=== PATIENT | male | born 1955 | race Caucasian/White ===

== ENCOUNTER 2018-01-05 02:55 | Observation (INO) | payer SELFPAY ==
[2018-01-05] MEDS ORDERED: Sodium Chloride 0.9% 1,000 ML IV SCH (03:15)
--- NOTE | 2018-01-05 03:15 | ED PDOC ---
Arrival/HPI - General Chief Complaint: Weakness/Neurological Deficit Time Seen by Provider: 01/05/18 02:56 Historian: Patient - History of Present Illness Narrative History of Present Illness (Text): 01/05/18 02:58 62 year old male, whose past medical history includes diabetes, TIA in the past and taking unknown blood thinner, presents to the emergency department by the police for slurred speech and ataxia. 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 Patient's symptoms have resolved. Patient denies any facial droop, fevers, chills, chest pain, shortness of breath, abdominal pain, nausea, vomiting, diarrhea, back pain, neck pain, urinary symptoms, headache, dizziness, or any other complaint. 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 Past Medical History - Provider Review Nursing Documentation Reviewed: Yes - Infectious Disease Hx of Infectious Diseases: None Family/Social History - Physician Review Nursing Documentation Reviewed: Yes Family/Social History: No Known Family HX Allergies/Home Meds Allergies/Adverse Reactions: Allergies No Known Allergies Allergy (Verified 01/05/18 03:02) Home Medications: Home Meds Medication Instructions Recorded Confirmed MetFORMIN [glucoPHAGE] 1 tab PO DAILY 01/05/18 01/05/18 Review of Systems - Physician Review All systems were reviewed & negative as marked: Yes - Review of Systems Constitutional: absent: Fevers, Other (Chills) Respiratory: absent: SOB Cardiovascular: absent: Chest Pain Gastrointestinal: absent: Diarrhea, Nausea, Vomiting Genitourinary Male: absent: Dysuria, Frequency, Hematuria Musculoskeletal: absent: Back Pain, Neck Pain Neurological: Speech Changes (slurred speech), Other (ataxia). absent: Headache , Dizziness, Facial Droop Physical Exam Vital Signs Reviewed: Yes Vital Signs Pulse Resp BP Pulse Ox 01/05/18 05:15 98 01/05/18 02:55 75 18 153/95 H 97 Appearance: Positive for: Well-Appearing, Non-Toxic, Comfortable Pain Distress: None Mental Status: Positive for: Alert and Oriented X 3 Finger Stick Blood Glucose: 151 - Systems Exam Head: Present: Atraumatic, Normocephalic Pupils: Present: PERRL Extroacular Muscles: Present: EOMI Conjunctiva: Present: Normal Mouth: Present: Moist Mucous Membranes Neck: Present: Normal Range of Motion Respiratory/Chest: Present: Clear to Auscultation, Good Air Exchange. No: Respiratory Distress, Accessory Muscle Use Cardiovascular: Present: Regular Rate and Rhythm, Normal S1, S2. No: Murmurs Abdomen: No: Tenderness, Distention, Peritoneal Signs Back: Present: Normal Inspection Upper Extremity: Present: Normal Inspection. No: Cyanosis, Edema Lower Extremity: Present: Normal Inspection. No: Edema Neurological: Present: GCS=15, CN II-XII Intact, Speech Normal, Motor Func Grossly Intact, Normal Sensory Function Skin: Present: Warm, Dry, Normal Color. No: Rashes Psychiatric: Present: Alert, Oriented x 3, Normal Insight, Normal Concentration Medical Decision Making ED Course and Treatment: 01/05/18 02:55 Impression: 62 year old male presents for slurred speech and ataxia found by police while driving erratic. Symptoms have resolved. Plan: -- Labs -- CT head w/o contrast -- EKG -- Chest X-ray -- IV Fluids -- Stroke Consult -- Reassess and disposition Progress Notes: 01/05/18 02:59 Code Stroke called. 01/05/18 03:[address] Winkler who is aware and agrees with the plan. 01/05/18 03:23 EKG shows NSR at 74 BPM. Normal EKG. Interpreted by me. EXAM: CT Head Without Intravenous Contrast Dictated and Authenticated by: Dayron Suresh MD 01/05/2018 3:19 AM IMPRESSION: No acute intracranial pathology or traumatic injury CXR Impression: As read by me, no acute disease. 01/05/18 04:18 Case discussed with medical staff services manager and Dr. Orozco who is aware and agrees with the plan. Accepts patient into hospitalist service. - Lab Interpretations Lab Results: 01/05/18 03:25 01/05/18 03:25 Lab Results 01/05/18 03:25: Magnesium 1.8 01/05/18 03:25: Alcohol, Quantitative < 10 01/05/18 03:25: Blood Type AB POSITIVE, Antibody Screen Negative, BBK History Checked No verified bt 01/05/18 03:25: Sodium 140, Potassium 3.7, Chloride 102, Carbon Dioxide 27, Anion Gap 15, BUN 13, Creatinine 1.1, Est GFR ( Amer) > 60, Est GFR (Non- Af Amer) > 60, Random Glucose 168 H, Calcium 9.5, Total Bilirubin 0.9, AST 22, ALT 24, Alkaline Phosphatase 71, Troponin I < 0.01, Total Protein 7.6, Albumin 4.4, Globulin 3.2, Albumin/Globulin Ratio 1.4, Triglycerides 104, Cholesterol 144, LDL Cholesterol Direct 73, HDL Cholesterol 34 01/05/18 03:25: PT 11.5, INR 1.01, APTT 30.1 01/05/18 03:25: WBC 4.5, RBC 4.74, Hgb 14.6, Hct 40.8 L, MCV 86.1, MCH 30.8, MCHC 35.8, RDW 13.7, Plt Count 138, MPV 10.4, Gran % 48.9 L, Lymph % (Auto) 36.1 H, [place] % (Auto) 10.1 H, Eos % (Auto) 4.7, Baso % (Auto) 0.2, Gran # 2.18, Lymph # (Auto) 1.6, [place] # (Auto) 0.5, Eos # (Auto) 0.2, Baso # (Auto) 0.01 I have reviewed the lab results: Yes - RAD Interpretation Radiology Orders: 01/05/18 03:02 HEAD W/O (CODE STROKE) [CT] Stat CHEST PORTABLE [RAD] Stat - EKG Interpretation Interpreted by ED Physician: Yes Type: 12 lead EKG - Medication Orders Current Medication Orders: Sodium Chloride (Sodium Chloride 0.9%) 1,000 mls @ 100 mls/hr IV .Q10H SILVER Last Admin: 01/05/18 03:43 Dose: 100 mls/hr eMAR Start Stop Document 01/05/18 03:43 SS (Rec: 01/05/18 03:53 [id number] Intravenous Solution Start Date 01/05/18 Start Time 03:43 Insulin Human Lispro (Humalog Med) 0 units SC ACHS SILVER PRN Reason: Protocol Pantoprazole Sodium (Protonix Ec Tab) 40 mg PO 0600 SILVER Last Admin: 01/05/18 05:38 Dose: 40 mg Tamsulosin HCl (Flomax) 0.4 mg PO DAILY SIL[facility] Discontinued Medications Aspirin (Ecotrin) 325 mg PO STAT STA Stop: 01/05/18 04:13 Last Admin: 01/05/18 04:56 Dose: 325 mg rTPA Inclusion/Exclusion - Refusal of Treatment Patient Refused Treatment: No - Inclusion Criteria for Altepase Patient is 18 years or Older: Yes The Clinical Diagnosis of Ischemic Stroke That is Causing a Potentially Disabling Neurological Deficit: No Time of Onset is Well Established to be Less Than 270 Minute Before Treatment Would Begin: Yes Risk/Benefit Discussed With Patient/Family Member Present: Yes - Exclusion Criteria for Altepase Uncontrolled Hypertension at Time of Treatment (Systolic BP above 185 or Diastolic BP above 110 mmHg): No Active Internal Bleeding: No Known Bleeding Diathesis Including but Not Limited to: Platelets Below 100,000/ mm,PTT Above 40 sec After Heparin Use, Current Use of Oral Anitcoagulant With INR Greater Than 1.7 or PT Greater Than 15 secs: No Evidence of an Intracranial Hemorrhage: No Evidence of Major Acute Infarct With Signs Greater Than 1/3 MCA Territory: No Suspicion of Subarachnoid Hemorrhage on Pretreatment Evaluation Even if CT Head Negative For Hemorrhage: No - Warning to TPA With Conditions Following Conditions Weighed Against Anticipated Benefit: Yes Condition: Stroke Serevity Too Mild, Rapid Improvement NIHSS Stroke Scale 3 - Date/Time Evaluation Performed Date Performed: 01/05/18 Time Performed: 02:55 When Was NIHSS Performed: Baseline - How Severe is the Stroke Level of Consciousness: 0=Alert LOC to Questions: 0=Both comments correct LOC to commands: 0=Obeys both correctly Best Gaze: 0=Normal Visual: 0=No visual loss Facial: 0=Normal Motor Arm - Left: 0=No drift Motor Arm - Right: 0=No drift Motor Leg - Left: 0=No drift Motor Leg - Right: 0=No drift Limb Ataxia: 0=Absent Sensory: 0=Normal Best Language: 0=No aphasia Dysarthia: 0=Normal articulation Extinction & Inattention (Neglect): 0=Normal, no object Score: 0 - Scribe Statement The provider has reviewed the documentation as recorded by the Katrina Daniels Provider Scribe Attestation: All medical record entries made by the Scribgrover were at my direction and personally dictated by me. I have reviewed the chart and agree that the record accurately reflects my personal performance of the history, physical exam, medical decision making, and the department course for this patient. I have also personally directed, reviewed, and agree with the discharge instructions and disposition. Disposition/Present on Arrival - Present on Arrival Any Indicators Present on Arrival: No History of DVT/PE: No History of Uncontrolled Diabetes: No Urinary Catheter: No History of Decub. Ulcer: No History Surgical Site Infection Following: None - Disposition Have Diagnosis and Disposition been Completed?: Yes Diagnosis: Transient ischemic attack Disposition: HOSPITALIZED Disposition Time: 04:20 Condition: FAIR
[2018-01-05 03:41] LABS: BASO # 0.01 K/mm3 (0.0-2.0); BASO % 0.2 % (0.0-3.0); EOS # 0.2 (0.0-0.7); EOS % 4.7 % (1.5-5.0); GRAN # 2.18 (1.4-6.5); GRAN % 48.9 % (50.0-68.0); HEMOGLOBIN 14.6 g/dL (14.0-18.0); LYMPH # 1.6 (1.2-3.4); LYMPH % 36.1 % (22.0-35.0); MEAN CELL VOLUME 86.1 fl (80.0-105.0); MEAN CORPUSCULAR HEMOGLOBIN 30.8 pg (25.0-35.0); MEAN CORPUSCULAR HGB CONC 35.8 g/dl (31.0-37.0); MEAN PLATELET VOLUME 10.4 fl (7.0-11.0); MONO # 0.5 (0.1-0.6); MONO % 10.1 % (1.0-6.0); RBC 4.74 10^6/uL (3.5-6.1); RED CELL DISTRIBUTION WIDTH 13.7 % (11.5-14.5); WHITE BLOOD COUNT 4.5 10^3/ul (4.5-11.0)
[2018-01-05 03:45] LABS: INR 1.01; PARTIAL THROMBOPLASTIN TIME 30.1 Seconds (25.1-36.5); PROTHROMBIN TIME 11.5 SECONDS (9.4-12.5)
[2018-01-05 03:46] LABS: ALB/GLOB RATIO 1.4 (1.1-1.8); ALBUMIN 4.4 g/dL (3.0-4.8); ALT/SGPT 24 U/L (7-56); AST/SGOT 22 U/L (17-59); BLOOD UREA NITROGEN 13 mg/dL (7-21); CALCIUM 9.5 mg/dL (8.4-10.5); GFR AFRICAN-AMERICAN > 60; GFR NON-AFRICAN AMERICAN > 60; HDL CHOLESTEROL 34 mg/dL (29-60)
[2018-01-05 03:56] LABS: LDL CHOLESTEROL 73 mg/dL (0-129)
[2018-01-05 03:59] LABS: TROPONIN I < 0.01 ng/mL
[2018-01-05] MEDS ORDERED: Aspirin 325 mg EC Tablets PO STA (04:12)
--- NOTE | 2018-01-05 05:01 | CP.PCM.HP ---
<Alejo La - Last Filed: 01/05/18 05:56> History of Present Illness - History of Present Illness History of Present Illness: Alejo La, PGY-1 History and Physical for Hospitalist Service CC: Ataxia and slurred speech HPI: Mr. 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 Police pulled patient over and he was found to have slurred speech and ataxia per the ED report, which prompted them to call an ambulance to have him evaluated. 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 Patient believes he was pulled over because his lights were off and he forgot his license at home. Patient responds appropriately to questions without slurring of words. Patient is a poor historian and does not remember which medications he takes aside from metformin , Tamsulosin and an unknown BP medication, although he reports compliance. Patient denies use of Aspirin at home because of unknown gastric problems. Patient reports dizziness but denies fevers chills, weakness, headaches, vision changes, chest pain, palpitations, shortness of breath, cough, abdominal pain, pain when urinating or with bowel movements, bleeding, nausea, vomiting, diarrhea, constipation, recent travel. PMHx: HTN, past CVA, DM2, BPH PSHx: none All: NKDA Social: Denies tobacco, ETOH, substance abuse. 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 Need to call [facility] in [place] in AM to confirm meds and dosages PMD: Dr. Nguyen ([facility]) Present on Admission - Present on Admission Any Indicators Present on Admission: No Review of Systems - Review of Systems Review of Systems: 12 point ROS completed and negative except as described in HPI. Past Patient History - Infectious Disease Hx of Infectious Diseases: None - Past Social History Smoking Status: Never Smoked - CARDIAC Hx Cardiac Disorders: Yes Hx Hypertension: Yes - PULMONARY Hx Respiratory Disorders: No - NEUROLOGICAL Hx Neurological Disorder: Yes HX Cerebrovascular Accident: Yes (2013) - HEENT Hx HEENT Problems: No - RENAL Hx Chronic Kidney Disease: No - ENDOCRINE/METABOLIC Hx Endocrine Disorders: Yes Hx Diabetes Mellitus Type 2: Yes - HEMATOLOGICAL/ONCOLOGICAL Hx Blood Disorders: No - INTEGUMENTARY Hx Dermatological Problems: No - MUSCULOSKELETAL/RHEUMATOLOGICAL Hx Musculoskeletal Disorders: No - GASTROINTESTINAL Hx Gastrointestinal Disorders: No - GENITOURINARY/GYNECOLOGICAL Hx Genitourinary Disorders: No - PSYCHIATRIC Hx Psychophysiologic Disorder: No Hx Substance Use: No - SURGICAL HISTORY Hx Surgeries: No Meds Allergies/Adverse Reactions: Allergies Allergy/AdvReac Type Severity Reaction Status Date / Time No Known Allergies Allergy Verified 01/05/18 03:02 Physical Exam - Constitutional Appears: Well, Non-toxic, No Acute Distress - Head Exam Head Exam: ATRAUMATIC, NORMAL INSPECTION, NORMOCEPHALIC - Eye Exam Eye Exam: EOMI, Normal appearance Pupil Exam: PERRL - ENT Exam ENT Exam: Mucous Membranes Moist - Neck Exam Neck exam: Positive for: Normal Inspection. Negative for: Tenderness - Respiratory Exam Respiratory Exam: Clear to Auscultation Bilateral, NORMAL BREATHING PATTERN. absent: Rales, Rhonchi, Wheezes, Respiratory Distress, Stridor - Cardiovascular Exam Cardiovascular Exam: RRR, +S1, +S2 - GI/Abdominal Exam GI & Abdominal Exam: Normal Bowel Sounds, Soft. absent: Distended, Guarding, Organomegaly, Rebound, Tenderness - Extremities Exam Extremities exam: Positive for: full ROM, pedal pulses present. Negative for: calf tenderness, pedal edema - Back Exam Back exam: NORMAL INSPECTION. absent: CVA tenderness (L), CVA tenderness (R), paraspinal tenderness - Neurological Exam Neurological exam: Alert, Oriented x3 Additional comments: no residual L sided weakness appreciated no facial asymmetry, no slurring of words - Expanded Neurological Exam Expanded Neurological exam: Ataxia (none.), Expressive Aphasia (none.) Patient oriented to: person, place, time Cranial nerves: EOM's Intact: Normal, Nystagmus: Normal, Tongue Deviation: Normal Cerebellar Function: Finger to Nose: Normal (normal with both hands), Heel to Jack: Normal Upper motor neuron: Pronator Drift: Normal Sensory exam: Lower Extremity 2 Point Discrimination: Normal, Lower Extremity Light Touch: Normal Neuro motor strength exam: Left Upper Extremity: 4, Right Upper Extremity: 4, Left Lower Extremity: 4, Right Lower Extremity: 4 Coma Scale Eye Opening: SPONTANEOUS Coma Scale Motor Response: OBEYS COMMANDS Coma Scale Verbal: Oriented Coma Scale Total: 15 - Psychiatric Exam Psychiatric exam: Normal Affect, Normal Mood - Skin Skin Exam: Dry, Intact, Normal Color, Warm Results - Vital Signs Recent Vital Signs: Last Vital Signs Temp Pulse 75 01/05/18 02:55 Resp 18 01/05/18 02:55 BP 153/95 H 01/05/18 02:55 Pulse Ox 97 01/05/18 02:55 - Labs Result Diagrams: 01/05/18 03:25 01/05/18 03:25 Assessment & Plan - Assessment and Plan (Free Text) Assessment: Assessment: Mr. Key is a 62 year old Male with a PMHx of CVA in 2003 with reported but undetected residual L sided weakness, DM2, HTN, and BPH who is being evaluated for earlier episode of ataxia and slurring of speech. At present time, symptoms have resolved. Plan: TIA Code stroke called in ED pt received ASA [address] head - No acute pathology or injury EKG NSR @ 74 bpm Trop neg x1. Trend next two f/u CXR Neurology consulted (Dr. Winkler) neuro check and VS q4 x 24 hours Patient has no slurred speech, no ataxia, no facial asymmetry, equal strength bilaterally, and no focal deficits f/u TSH and AM labs DM ISS mod accuchecks 168 on admission f/u a1c and lipid panel HHD HTN unknown med call pharmacy to confirm Hypertensive upon admission 153/95 so NS discontinued Continue to Monitor BPH Tamsulosin 0.4 GI/DVT PPx Protonix 40 SCD's Disposition: admission to tele. Call [facility] in [place] to confirm meds [phone] Patient seen, case discussed, and plan reviewed with Dr. Orozco. Alejo La, PGY-1 <Kaya Orozco - Last Filed: 01/05/18 06:13> Results - Vital Signs Recent Vital Signs: Last Vital Signs Temp Pulse 75 01/05/18 02:55 Resp 20 01/05/18 05:55 BP 153/95 H 01/05/18 02:55 Pulse Ox 98 01/05/18 05:15 - Labs Result Diagrams: 01/05/18 03:25 01/05/18 03:25 Attending/Attestation - Attestation I have personally seen and examined this patient.: Yes I have fully participated in the care of the patient.: Yes I have reviewed all pertinent clinical information: Yes Notes (Text): 01/05/18 06:10 Patient seen with resident by bedside. Case discussed in detail. Agree with examination findings and plan of treatment documented.
[2018-01-05] MEDS: Pantoprazole 40 mg EC Tab PO SCH (05:38)
--- NOTE | 2018-01-05 08:45 | CT ---
Date of service: 01/05/2018 PROCEDURE: CT HEAD WITHOUT CONTRAST. HISTORY: Code Stroke COMPARISON: None available. TECHNIQUE: Axial computed tomography images were obtained through the head/brain without intravenous contrast. Radiation dose: Total exam DLP = 944 mGy-cm. This CT exam was performed using one or more of the following dose reduction techniques: Automated exposure control, adjustment of the mA and/or kV according to patient size, and/or use of iterative reconstruction technique. FINDINGS: HEMORRHAGE: No intracranial hemorrhage. BRAIN: No mass effect or edema. No atrophy or chronic microvascular ischemic changes. VENTRICLES: Unremarkable. No hydrocephalus. CALVARIUM: Unremarkable. PARANASAL SINUSES: Unremarkable as visualized. No significant inflammatory changes. MASTOID AIR CELLS: Unremarkable as visualized. No inflammatory changes. OTHER FINDINGS: The report concurs with the preliminary [facility] report IMPRESSION: No acute findings
[2018-01-05] MEDS: Insulin Lispro (humaLOG) MEDIUM Coverage SC SCH ×4 (09:18→22:03)
--- NOTE | 2018-01-05 09:56 | CARD ---
APPROVED REPORT Date of service: 01/05/2018 EKG Measurement Heart [id number] <Conclusion> Normal sinus rhythm Normal ECG
--- NOTE | 2018-01-05 10:34 | CP.PCM.CON ---
History of Present Illness - History of Present Illness History of Present Illness: Brenden Giordano PGY2 Neurology Consult Note for Dr. Winkler Mr. Key this 62-year-old male with a PMH of CVA in 2003 with slight residual left-sided weakness, DM 2, HTN and BPH who was brought in by ambulance for possible CVA. Per ED triage note, the patient was pulled over by police for driving erratically and slurred speech. 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 When asked for his license and registration, the patient states that he did not have his license because he had forgotten his license in his wallet in another pair of pants at home. The patient states that the police required him to do some physical tasks, including what sounds like standardized field sobriety test (walking in a straight line and turning) which the patient was unable to perform. Upon arrival in the ED, the symptoms had resolved and were not noted in the ED note. CODE STROKE was called, the patient was was given aspirin 325 mg but was not candidate for tPA. EKG was NSR. CT head was unremarkable. NIHSS score was 0 at time of presentation. When evaluated today, the patient denies any focal weakness, dizziness, headaches, slurring of speech, facial asymmetry, weakness, shortness of breath, chest pain, abdominal pain or any numbness or tingling. He is alert and oriented, and able to recall the events in full detail. He states that he was not exhausted at the time, and that work has been slow. He states that sometimes his BP gets high, and he might experience some tingling in his left upper and lower extremities, but denied any current symptoms. 12 point ROS was reviewed and is otherwise unremarkable. PMD: Dr. Nguyen ([facility]) PMH: HTN, past CVA, DM2, BPH PSH: none Meds: reviewed, as per MAR Allergies: NKDA SHxl: Denies tobacco, ETOH, substance abuse. 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 FHx: non-contributory Review of Systems - Review of Systems All systems: reviewed and no additional remarkable complaints except (as per HPI ) Past Patient History - Infectious Disease Hx of Infectious Diseases: None - Past Medical History & Family History Past Medical History?: Yes Past Family History: Reviewed and not pertinent - Past Social History Smoking Status: Never Smoked Alcohol: None Drugs: Denies Home Situation {Lives}: With Family - CARDIAC Hx Cardiac Disorders: Yes Hx Hypertension: Yes - PULMONARY Hx Respiratory Disorders: No - NEUROLOGICAL Hx Neurological Disorder: Yes HX Cerebrovascular Accident: Yes (2003) - HEENT Hx HEENT Problems: No - RENAL Hx Chronic Kidney Disease: No - ENDOCRINE/METABOLIC Hx Endocrine Disorders: Yes Hx Diabetes Mellitus Type 2: Yes - HEMATOLOGICAL/ONCOLOGICAL Hx Blood Disorders: No - INTEGUMENTARY Hx Dermatological Problems: No - MUSCULOSKELETAL/RHEUMATOLOGICAL Hx Musculoskeletal Disorders: No - GASTROINTESTINAL Hx Gastrointestinal Disorders: No - GENITOURINARY/GYNECOLOGICAL Hx Genitourinary Disorders: No - PSYCHIATRIC Hx Psychophysiologic Disorder: No Hx Substance Use: No - SURGICAL HISTORY Hx Surgeries: No Meds Allergies/Adverse Reactions: Allergies Allergy/AdvReac Type Severity Reaction Status Date / Time No Known Allergies Allergy Verified 01/05/18 03:02 - Medications Medications: Current Medications Insulin Human Lispro (Humalog Med) 0 units SC ACHS [facility] PRN Reason: Protocol Last Admin: 01/05/18 09:18 Dose: 1 units Pantoprazole Sodium (Protonix Ec Tab) 40 mg PO 0600 [facility] Last Admin: 01/05/18 05:38 Dose: 40 mg Tamsulosin HCl (Flomax) 0.4 mg PO DAILY [facility] Last Admin: 01/05/18 09:18 Dose: 0.4 mg Physical Exam - Constitutional Appears: Well, Non-toxic, No Acute Distress - Head Exam Head Exam: ATRAUMATIC, NORMAL INSPECTION - Eye Exam Eye Exam: EOMI, Normal appearance, PERRL - ENT Exam ENT Exam: Mucous Membranes Moist, Normal Exam - Neck Exam Neck exam: Positive for: Normal Inspection - Respiratory Exam Respiratory Exam: NORMAL BREATHING PATTERN. absent: Respiratory Distress - Cardiovascular Exam Cardiovascular Exam: RRR, +S1, +S2 - GI/Abdominal Exam GI & Abdominal Exam: Normal Bowel Sounds, Soft - Extremities Exam Extremities exam: Positive for: normal inspection - Back Exam Back exam: NORMAL INSPECTION - Neurological Exam Neurological exam: Alert, CN II-XII Intact, Oriented x3 Additional comments: no motor sensory deficits no facial motor or sensory assymetry no pronator drift noted in upper or lower extremities muscle strength 5/5 x4 extremities no slurring of speech noted - Psychiatric Exam Psychiatric exam: Normal Mood - Skin Skin Exam: Normal Color, Warm Results - Vital Signs Recent Vital Signs: Last Vital Signs Temp 98.1 F 01/05/18 06:00 Pulse 80 01/05/18 06:00 Resp 20 01/05/18 06:00 BP 152/108 H 01/05/18 06:30 Pulse Ox 96 01/05/18 06:00 - Labs Result Diagrams: 01/05/18 03:25 01/05/18 03:25 Labs: Laboratory Results - last 24 hr 01/05/18 01/05/18 01/05/18 04:18 06:14 07:45 POC Glucose (mg/dL) 166 H Troponin I < 0.01 Blood Type Confirm AB POSITIVE Assessment & Plan - Assessment and Plan (Free Text) Assessment: 2-year-old male with a 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 Symptoms resolved upon presentation ED. CODE STROKE was called. Plan: HTN urgency vs r/o TIA - CT head was unremarkable - Lipid panel, TSH unremarkable - A1c is ordered - Drug screen is ordered - Continue aspirin 81 mg daily - MRI brain ordered - CTA Head/Neck ordered - EEG ordered - Echo ordered - PT/OT - Speech pathologist eval is pending - Neurochecks - Moderate fall risk - DVT and GI ppx - Strict glycemic control - Monitor vital signs - Telemetry monitoring - Permissive HTN, treat only SBP > 220, and DBP > 120. If MRI is negative for acute ischemic changes, then maintain normotension - Further recs per Dr. Winkler Case was reviewed and discussed with attending, Dr. Peterson Giordano PGY2
--- NOTE | 2018-01-05 12:26 | RAD ---
Date of service: 01/05/2018 HISTORY: Code Stroke COMPARISON: No prior. FINDINGS: LUNGS: No active pulmonary disease. PLEURA: No significant pleural effusion identified, no pneumothorax apparent. CARDIOVASCULAR: No radiographic findings to suggest acute or significant cardiovascular disease. OSSEOUS STRUCTURES: No significant abnormalities. VISUALIZED UPPER ABDOMEN: Normal. OTHER FINDINGS: None. IMPRESSION: No active disease.
[2018-01-05 14:34] LABS: BARBITURATES, UR NEGATIVE (NEGATIVE); BENZODIAZEPINES, UR NEGATIVE (NEGATIVE); OPIATES, UR NEGATIVE (NEGATIVE); PHENCYCLIDINE, UR NEGATIVE (NEGATIVE)
[2018-01-05] MEDS ORDERED: Iohexol 350 MG/100 ML VIAL ONE (15:20)
--- NOTE | 2018-01-05 17:28 | MRI ---
Date of service: 01/05/2018 PROCEDURE: MRI BRAIN WITHOUT CONTRAST HISTORY: code stroke COMPARISON: Noncontrast head CT from 01/05/2018. TECHNIQUE: Multiplanar, multisequence MR images of the brain were obtained without intravenous contrast enhancement. FINDINGS: HEMORRHAGE: None DWI: No evidence of an acute or early subacute infarction. BRAIN PARENCHYMA: Old infarction in the right centrum semiovale, dominguez radiata and frontal subcortical white matter. There are mild chronic microangiopathic changes. There is no mass, mass effect or abnormal extra-axial fluid collection. The midline sagittal structures are normal. VENTRICLES: There is mild age-related global parenchymal volume loss and proportionate enlargement of the ventricles and cortical sulci. CRANIUM: There is normal bone marrow signal pattern. ORBITS: Grossly unremarkable. PARANASAL SINUSES/MASTOIDS: There is mild mucosal thickening in the paranasal sinuses and a retention cyst/ polyp in the right maxillary sinus. The mastoid air cells are clear. VASCULAR SYSTEM: There are normal signal voids in the larger intracranial arteries. OTHER FINDINGS: None. IMPRESSION: No acute intracranial abnormality. Old infarction in the right centrum semiovale, dominguez radiata and frontal subcortical white matter. Mild chronic microangiopathic changes and mild age-related global parenchymal volume loss.
--- NOTE | 2018-01-05 17:46 | CT ---
PROCEDURE: CTA HEAD AND NECK WITH CONTRAST HISTORY: code stroke COMPARISON: None available. TECHNIQUE: Initial noncontrast head CT was performed. Subsequently, CT angiogram of the head and neck were performed after the intravenous administration of 80 mL of Omnipaque 350. Contiguous 1.5mm thick images were obtained in the axial plane of the neck. 2-D coronal and sagittal MPR images were obtained. Imaging postprocessing was performed with 3-D images also obtained. A delayed contrast head CT was also obtained. This CT exam was performed using one or more of the following dose reduction techniques: Automated exposure control, adjustment of the mA and/or kV according to patient size, and/or use of iterative reconstruction technique. Contrast dose: 100 cc Omnipaque 350 Radiation dose: Total exam DLP = 675.03 mGy-cm. FINDINGS: HEAD: Right: The intracranial internal carotid artery, and anterior and middle cerebral arteries are widely patent. Left: The intracranial internal carotid artery, and anterior and middle cerebral arteries are widely patent. Posterior circulation: The visualized intracranial vertebral arteries, basilar artery and posterior cerebral arteries are widely patent. There is no endoluminal filling defect to suggest thrombus. There is no intracranial saccular aneurysm. There is no abnormal enhancement on the postcontrast CT. NECK: There is a three vessel aortic arch with common origin of the innominate and left common carotid arteries and aortic origin of the left vertebral artery posterior to the origin of the left subclavian artery. There is no stenosis at the origins of the great vessels at the level of the aortic arch. Right Carotid: On the right, the common carotid, internal carotid and external carotid arteries are widely patent. Mild soft plaques at the origin of the left internal carotid artery. There is no hemodynamically significant stenosis in the internal carotid artery by NASCET criteria. Left Carotid: On the left, the common carotid, internal carotid and external carotid arteries are widely patent.There is no hemodynamically significant stenosis in the internal carotid arteries. There is no hemodynamically significant stenosis in the internal carotid artery by NASCET criteria. The vertebral arteries are widely patent. The right vertebral artery is dominant, an anatomic variant. The visualized soft tissues of the neck are normal. The visualized brain and cervical spine are within normal limits. The lung apices are clear. IMPRESSION: 1. No evidence of endoluminal thrombus,occlusion or definite significant stenosis in the intracranial arteries. 2. No evidence of hemodynamically significant stenosis in the internal carotid arteries. 3. Patent bilateral vertebral arteries.
--- NOTE | 2018-01-05 18:47 | CARD ---
APPROVED REPORT Date of service: 01/05/2018 EXAM: Two-dimensional and M-mode echocardiogram with Doppler and color Doppler. INDICATION CVA/TIA 2D DIMENSIONS Left Atrium (2D)4.1 (1.6-4.0cm)IVSd1.3 (0.7-1.1cm) LVDd4.6 (3.9-5.9cm)PWd1.3 (0.7-1.1cm) LVDs3.6 (2.5-4.0cm)FS (%) 21.9 % LVEF (%)44.4 (>50%) M-Mode DIMENSIONS Aortic Root3.70 (2.2-3.7cm)Aortic Cusp Exc.2.40 (1.5-2.0cm) Aortic Valve AoV Peak Gemsgiav550.0cm/Livan Peak GR.5mmHg Mitral Valve MV E Iyigpudy60.7cm/sMV A Yqbthbfn69.9cm/sE/A ratio0.7 TDI Lateral E' Peak V4.87cm/sMedial E' Peak V4.39cm/sE/Lateral E'12.9 E/Medial E'14.3 Pulmonary Valve PV Peak Yhadhelr40.7cm/sPV Peak Grad.1mmHg Tricuspid Valve TR Peak Vxymbxfl050wu/sRAP [id number] Peak Gr.14mmHg [id number] LEFT VENTRICLE The left ventricle is normal size. There is mild to moderate concentric left ventricular hypertrophy. The systolic function is mildly impaired.EF-45% There is mild hypokinesis in the apical anterior wall. The left ventricular diastolic function is normal. No left ventricle thrombus noted on this study. There is no ventricular septal defect visualized. There is no left ventricular aneurysm. There is no mass noted in the left ventricle. RIGHT VENTRICLE The right ventricle is normal size. There is normal right ventricular wall thickness. The right ventricular systolic function is normal. ATRIA The left atrium is borderline dilated. The right atrium size is normal. The interatrial septum is intact with no evidence for an atrial septal defect. AORTIC VALVE The aortic valve is thickened but opens well. No aortic regurgitation is present. There is no aortic valvular stenosis. There is no aortic valvular vegetation. MITRAL VALVE The mitral valve is thickened but opens well. Mitral regurgitation is trace. There is no mitral valve stenosis. There is no evidence of mitral valve prolapse. TRICUSPID VALVE The tricuspid valve leaflets are thickened , but open well. There is trace tricuspid regurgitation.RVSp-24 mmof hg. There is no tricuspid valve stenosis. There is no tricuspid valve prolapse or vegetation. PULMONIC VALVE The pulmonary valve is normal in structure. There is no pulmonic valvular regurgitation. There is no pulmonic valvular stenosis. GREAT VESSELS The aortic root is normal in size. The ascending aorta is normal in size. The pulmonary artery is normal. The IVC is normal in size and collapses >50% with inspiration. PERICARDIAL EFFUSION There is no pleural effusion. There is no pericardial effusion. <Conclusion> The left ventricle is normal size. There is mild to moderate concentric left ventricular hypertrophy. The systolic function is mildly impaired.EF-45% Mitral regurgitation is trace. There is trace tricuspid regurgitation.RVSp-24 mmof hg. The IVC is normal in size and collapses >50% with inspiration. There is no pericardial effusion. No Vegetation or thrombus noted.
[2018-01-06] MEDS: Pantoprazole 40 mg EC Tab PO SCH (05:14)
[2018-01-06 06:57] LABS: BASO # 0.01 K/mm3 (0.0-2.0); BASO % 0.3 % (0.0-3.0); EOS # 0.2 (0.0-0.7); EOS % 5.8 % (1.5-5.0); GRAN # 1.67 (1.4-6.5); GRAN % 41.9 % (50.0-68.0); HEMOGLOBIN 14.7 g/dL (14.0-18.0); LYMPH # 1.7 (1.2-3.4); LYMPH % 43.2 % (22.0-35.0); MEAN CELL VOLUME 85.9 fl (80.0-105.0); MEAN CORPUSCULAR HEMOGLOBIN 30.6 pg (25.0-35.0); MEAN CORPUSCULAR HGB CONC 35.6 g/dl (31.0-37.0); MEAN PLATELET VOLUME 9.5 fl (7.0-11.0); MONO # 0.4 (0.1-0.6); MONO % 8.8 % (1.0-6.0); RBC 4.81 10^6/uL (3.5-6.1); RED CELL DISTRIBUTION WIDTH 13.6 % (11.5-14.5)
[2018-01-06 07:14] LABS: ALB/GLOB RATIO 1.3 (1.1-1.8); ALBUMIN 3.8 g/dL (3.0-4.8); ALT/SGPT 26 U/L (7-56); AST/SGOT 17 U/L (17-59); BLOOD UREA NITROGEN 12 mg/dL (7-21); CALCIUM 9.1 mg/dL (8.4-10.5); GFR AFRICAN-AMERICAN > 60; GFR NON-AFRICAN AMERICAN > 60
[2018-01-06] MEDS: Insulin Lispro (humaLOG) MEDIUM Coverage SC SCH ×4 (08:23→22:00)
--- NOTE | 2018-01-06 09:15 | CP.PCM.PN ---
Subjective - Date & Time of Evaluation Date of Evaluation: 01/06/18 Time of Evaluation: 07:42 - Subjective Subjective: Brenden Giordano PGY2 Neurology Progress Note for Dr. Winkler Patient was seen and examined at bedside. There were no acute overnight events. The patient is doing well, and denies any headaches, dizziness, changes in vision/hearing, chest pain or shortness of breath or trouble ambulating. MRI of brain was done, with no significant acute abnormalities but was positive for old infarct in the right centrum semi-ovale, dominguez radiata and frontal subcortical white matter. CTA of head and neck was unremarkable. Objective - Vital Signs/Intake and Output Vital Signs (last 24 hours): Temp Pulse Resp BP Pulse Ox 98.3 F 65 18 131/93 H 96 01/06/18 06:00 01/06/18 06:00 01/06/18 06:00 01/06/18 06:00 01/06/18 06:00 Intake and Output: 01/06/18 01/06/18 06:59 18:59 Intake Total 240 Output Total 1600 Balance -1360 - Medications Medications: Current Medications Aspirin (Ecotrin) 81 mg PO DAILY [facility] Atorvastatin Calcium (Lipitor) 20 mg PO DIN [facility] Last Admin: 01/05/18 18:23 Dose: 20 mg Insulin Human Lispro (Humalog Med) 0 units SC ACHS [facility] PRN Reason: Protocol Last Admin: 01/06/18 08:23 Dose: 3 units Pantoprazole Sodium (Protonix Ec Tab) 40 mg PO 0600 [facility] Last Admin: 01/06/18 05:14 Dose: 40 mg Tamsulosin HCl (Flomax) 0.4 mg PO DAILY [facility] Last Admin: 01/05/18 09:18 Dose: 0.4 mg - Labs Labs: 01/06/18 06:00 01/06/18 06:00 PT 11.5 SECONDS (9.4-12.5) 01/05/18 03:25 INR 1.01 01/05/18 03:25 APTT 30.1 Seconds (25.1-36.5) 01/05/18 03:25 - Additional Findings Additional findings: - Constitutional Appears: Well, Non-toxic, No Acute Distress - Head Exam Head Exam: ATRAUMATIC, NORMAL INSPECTION - Eye Exam Eye Exam: EOMI, Normal appearance, PERRL - ENT Exam ENT Exam: Mucous Membranes Moist, Normal Exam - Neck Exam Neck exam: Positive for: Normal Inspection - Respiratory Exam Respiratory Exam: NORMAL BREATHING PATTERN. absent: Respiratory Distress - Cardiovascular Exam Cardiovascular Exam: RRR, +S1, +S2 - GI/Abdominal Exam GI & Abdominal Exam: Normal Bowel Sounds, Soft - Extremities Exam Extremities exam: Positive for: normal inspection - Back Exam Back exam: NORMAL INSPECTION - Neurological Exam Neurological exam: Alert, CN II-XII Intact, Oriented x3 Additional comments: no motor sensory deficits no facial motor or sensory asymmetry no pronator drift noted in upper or lower extremities muscle strength 5/5 x4 extremities no slurring of speech noted - Psychiatric Exam Psychiatric exam: Normal Mood - Skin Skin Exam: Normal Color, Warm Assessment and Plan - Assessment and Plan (Free Text) Assessment: 62-year-old male with a 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 Symptoms resolved upon presentation ED. CODE STROKE was called. Based on imaging, the patient did not suffer an acute CVA, and symptoms were likely due to fatigue vs uncontrolled hypertension. Plan: HTN urgency, unlikely TIA - A1c was 8.1 - Continue aspirin 81 mg daily - EEG is normal, with no epileptiform activity - DVT and GI ppx - Recommend strict glycemic and BP control - Monitor vital signs - Telemetry monitoring - Maintain normotension w/ goal SBP <130 - Patient should follow-up with a neurologist and PMD as outpatient for his prior stroke and to reduce risk of future one - Patient is safe for discharge neurologically - Further recs per Dr. Winkler Will sign off at this time. Please reconsult if needed. Case was reviewed and discussed with attending, Dr. Peterson Giordano PGY2
[2018-01-06 12:17] VITALS: RESP 20
--- NOTE | 2018-01-06 12:37 | CP.PCM.PN ---
<Tony Castillo - Last Filed: 01/06/18 15:39> Subjective - Date & Time of Evaluation Date of Evaluation: 01/06/18 Time of Evaluation: 08:00 - Subjective Subjective: Internal Medicine Progress Note for Dr. Esther Castillo PGY1 62M seen and evaluated at bedside this morning. No acute events overnight. No complaints this morning. Tolerating his diet and ambulating without difficulty. States he has difficulty obtaining medications because of his financial issues. He does not regularly take aspirin since his stroke in 2003. He denies any headaches, dizziness, confusion, chest pain, shortness of breath. Denies fever, chills, nausea, vomiting, diarrhea, abdominal pain, or urinary symptoms. Objective - Vital Signs/Intake and Output Vital Signs (last 24 hours): Temp Pulse Resp BP Pulse Ox 97.9 F 92 H 20 148/97 H 96 01/06/18 12:00 01/06/18 12:00 01/06/18 12:00 01/06/18 12:00 01/06/18 06:00 Intake and Output: 01/06/18 01/06/18 06:59 18:59 Intake Total 240 Output Total 1600 Balance -1360 - Medications Medications: Current Medications Aspirin (Ecotrin) 81 mg PO DAILY [facility] Last Admin: 01/06/18 10:18 Dose: 81 mg Atorvastatin Calcium (Lipitor) 20 mg PO DIN [facility] Last Admin: 01/05/18 18:23 Dose: 20 mg Insulin Human Lispro (Humalog Med) 0 units SC ACHS [facility] PRN Reason: Protocol Last Admin: 01/06/18 12:23 Dose: Not Given Lisinopril (Zestril) 40 mg PO DAILY [facility] Last Admin: 01/06/18 12:26 Dose: 40 mg Pantoprazole Sodium (Protonix Ec Tab) 40 mg PO 0600 [facility] Last Admin: 01/06/18 05:14 Dose: 40 mg Tamsulosin HCl (Flomax) 0.4 mg PO DAILY [facility] Last Admin: 01/06/18 10:18 Dose: 0.4 mg - Labs Labs: 01/06/18 06:00 01/06/18 06:00 PT 11.5 SECONDS (9.4-12.5) 01/05/18 03:25 INR 1.01 01/05/18 03:25 APTT 30.1 Seconds (25.1-36.5) 01/05/18 03:25 - Constitutional Appears: Well, Non-toxic, No Acute Distress - Head Exam Head Exam: ATRAUMATIC, NORMAL INSPECTION, NORMOCEPHALIC - Eye Exam Eye Exam: EOMI, PERRL - ENT Exam ENT Exam: Mucous Membranes Dry - Respiratory Exam Respiratory Exam: Clear to Ausculation Bilateral, NORMAL BREATHING PATTERN - Cardiovascular Exam Cardiovascular Exam: REGULAR RHYTHM, +S1, +S2. absent: Murmur - GI/Abdominal Exam GI & Abdominal Exam: Soft, Normal Bowel Sounds. absent: Tenderness - Extremities Exam Extremities Exam: absent: Pedal Edema, Tenderness - Neurological Exam Neurological Exam: Alert, Awake, CN II-XII Intact, Oriented x3 - Psychiatric Exam Psychiatric exam: Normal Affect, Normal Mood - Skin Skin Exam: Dry, Warm Assessment and Plan - Assessment and Plan (Free Text) Assessment: 62M, with PMH of CVA in 2003 with reported but undetected residual L sided weakness, DM2, HTN, and BPH brought in by EMS after exhibiting ataxia and slurred speech, admitted to telemetry to rule out stroke. At present time, symptoms have resolved. Plan: 1. TIA vs. Hypertensive urgency - Code Stroke in the ED - CT head: no acute pathology or injury - CTA Neck/Head: no thrombus or stenosis, patent vertebral arteries - MRI Brain: no intracranial abnormalities, age related changes and old infarct - ECHO: moderate LVH, EF 45%, trace mitral and tricuspid regurgitation - Neurology, Dr. Winkler consulted, recommendations appreciated - Pending EEG - Continue Aspirin 81mg - Neurochecks Q4 - Patient refused speech pathology services - PT evaluated and states patient is not candidate for services at this time - Pending OT evaluation 2. Newly diagnosed systolic CHF - Not in acute exacerbation - ECHO: EF 45% - Cardiology, Dr. Conteh consulted, recommendations appreciated 3. Hypertension - Started Lisinopril 40mg (equivalent to home medication benazapril 40mg per Pharmacy) - Patient states he has brief black outs when he stands up abruptly, orthostatics ordered - Will continue to monitor BP 4. Diabetes Mellitus - Holding home medication Metformin 1000mg BID - ISS - Accuchecks - Will continue to monitor 5. BPH - Continue home medications Tamsulosin and Furosemide GI: Protonix DVT: SCDs HHD Dispo: Social work consulted pending haley care. Patient has scheduled appointment at [facility] on 01/17 4:30pm. Patient seen and plan discussed with Dr. Ramon Castillo PGY1 <Esther Navarro R - Last Filed: 01/08/18 11:48> Objective - Vital Signs/Intake and Output Vital Signs (last 24 hours): Temp Pulse Resp BP Pulse Ox 97.6 F 69 20 140/86 100 01/07/18 12:00 01/07/18 15:36 01/07/18 12:00 01/07/18 15:36 01/07/18 13:03 - Labs Labs: 01/07/18 06:30 01/07/18 06:30 PT 11.5 SECONDS (9.4-12.5) 01/05/18 03:25 INR 1.01 01/05/18 03:25 APTT 30.1 Seconds (25.1-36.5) 01/05/18 03:25 Attending/Attestation - Attestation I have personally seen and examined this patient.: Yes I have fully participated in the care of the patient.: Yes I have reviewed all pertinent clinical information, including history, physical exam and plan: Yes Notes (Text): Patient seen and examined by me at 10:05AM with resident 01/06/18. Case including HPI, physical exam, and assessment and plan discussed with resident. Agree with above with following additions/corrections. Patient is a 62 year old male with past medical history significant for CVA, left sided weakness, DM2, Hypertension, and BPH that presented to the emergency room with ataxia and slurred speech after he wall pulled over by police for erratic driving. Patient states that he is feeling much better. He is not sure what happened. States he is having some discomfort in his right leg when he walking. States he always has a little weakness on his left side. He denies any chest pain or shortness of breath. No nausea, vomiting, or abdominal pain. No fevers or chills. No headaches or dizziness. No dysuria. Patient states that he does not take his medications regularly as he can not afford them some times. He also states he does not take ASA daily since his stroke. Patient was counseled at length about compliance with taking medications. Physical exam: Gen: Awake and alert sitting up in bed in no acute distress HEENT: Normocephalic, atraumatic. Extraocular muscles intact, pupils equal reactive. No scleral icterus. Oropharynx is pink and moist. Neck is supple. Cardiovascular: Normal rhythm. Normal S1, S2. No murmurs, rubs, or gallops appreciated Pulmonary: Normal respiratory effort. No rhonchi, rales or wheezing appreciated. Gastrointestinal: Soft, nontender , nondistended, positive bowel sounds all 4 quadrants, no guarding. Musculoskeletal: Normal range of motion all extremities. No calf tenderness. No edema appreciated. Central nervous system: AAO x 3. CN 2-12 grossly intact. 5/5 muscle strength all extremities. Dermatologic: Skin warm and dry Assessment and plan: Patient is a 62 year old male with past medical history significant for CVA, left sided weakness, DM2, Hypertension, and BPH that presented to the emergency room with ataxia and slurred speech after he wall pulled over by police for erratic driving. 1. Ataxia. Slurred speech. CVA ruled out. CT head per radiologist showed no acute findings. Head/neck CTA per radiologist showed no evidence of endoluminal thrombus, occulsion or definite significant stenosis in the intracranial arteries; no evidence of hemodynamically significant stenosis in the internal carotid arteries; patent bilateral vertebral arteries. Brain MRI per radiologist showed no acute intracranial abnormality; old infarction in the right centrum semiovale, dominguez radiata and frontal subcortical white matter; mild chronic microangiopathic changes and mild age-related global parenchymal volume loss. 2d echo per radiologist shows left ventricle normal size, EF of 45% , mild to moderate concentric left ventricular hypertrophy. Continue ASA and lipitor. Neurology following, recommendations appreciated. Continue physical therapy. Patient counseled at length on importance of taking medications at home 2. Uncontrolled hypertension. Likely because patient is noncompliant with medications at home. Patient's home BP med also held initially to allow for permissive hypertension until CVA ruled out. Will restart anti-hypertensive. Patient counseled at length on importance of taking medications at home 3. EF of 45% on echo. Patient asymptomatic. Cardiology consulted, follow up recommendations. 4. DM2. Continue insulins sliding scale. Continue to monitor accuchecks 5. BPH. Continue flomax Case was discussed in detail with the patient regarding current diagnosis and treatment plan.
[2018-01-07] MEDS: Pantoprazole 40 mg EC Tab PO SCH (05:30)
[2018-01-07 07:19] LABS: BASO # 0.02 K/mm3 (0.0-2.0); BASO % 0.4 % (0.0-3.0); EOS # 0.2 (0.0-0.7); EOS % 5.1 % (1.5-5.0); GRAN # 2.24 (1.4-6.5); GRAN % 47.6 % (50.0-68.0); HEMOGLOBIN 14.8 g/dL (14.0-18.0); LYMPH # 1.8 (1.2-3.4); LYMPH % 38.2 % (22.0-35.0); MEAN CELL VOLUME 86.2 fl (80.0-105.0); MEAN CORPUSCULAR HEMOGLOBIN 30.6 pg (25.0-35.0); MEAN CORPUSCULAR HGB CONC 35.5 g/dl (31.0-37.0); MEAN PLATELET VOLUME 10.1 fl (7.0-11.0); MONO # 0.4 (0.1-0.6); MONO % 8.7 % (1.0-6.0); RBC 4.84 10^6/uL (3.5-6.1); RED CELL DISTRIBUTION WIDTH 13.6 % (11.5-14.5); WHITE BLOOD COUNT 4.7 10^3/ul (4.5-11.0)
[2018-01-07 07:32] LABS: ALB/GLOB RATIO 1.4 (1.1-1.8); ALBUMIN 3.9 g/dL (3.0-4.8); ALT/SGPT 25 U/L (7-56); AST/SGOT 17 U/L (17-59); BLOOD UREA NITROGEN 14 mg/dL (7-21); CALCIUM 9.3 mg/dL (8.4-10.5); GFR AFRICAN-AMERICAN > 60; GFR NON-AFRICAN AMERICAN > 60
[2018-01-07] MEDS: Insulin Lispro (humaLOG) MEDIUM Coverage SC SCH ×3 (08:16→17:44)
[2018-01-07] MEDS ORDERED: POLYETHYLENE GLYCOL 3350 17 GM/Dose PACKET PO ONE (10:17)
[2018-01-07 12:18] VITALS: TEMP 97.6
[2018-01-07 13:14] VITALS: O2SAT 100
[2018-01-07 15:37] VITALS: BP 140/86; PULSE 69
--- NOTE | 2018-01-07 16:08 | CP.PCM.DIS ---
Addendum entered and electronically signed by Richard Munoz DO 01/07/18 16:11: Pt was educated on hypertension and importance of compliance with medication. He was instructed to follow up at his scheduled appointment. He had previously been non compliant with home medications. Patient comprehended instructions. Addendum entered and electronically signed by Richard Munoz DO 01/07/18 16:08: BP 140/86 prior to discharge. Original Note: <Richard Munoz - Last Filed: 01/07/18 16:05> Provider - Provider Date of Admission: 01/05/18 04:10 Attending physician: Esther Navarro DO Consults: Neuro Cardiology Time Spent in preparation of Discharge (in minutes): 70 Hospital Course - Lab Results Lab Results: Most Recent Lab Values WBC 4.7 10^3/ul (4.5-11.0) 01/07/18 06:30 RBC 4.84 10^6/uL (3.5-6.1) 01/07/18 06:30 Hgb 14.8 g/dL (14.0-18.0) 01/07/18 06:30 Hct 41.7 % (42.0-52.0) L 01/07/18 06:30 MCV 86.2 fl (80.0-105.0) 01/07/18 06:30 MCH 30.6 pg (25.0-35.0) 01/07/18 06:30 MCHC 35.5 g/dl (31.0-37.0) 01/07/18 06:30 RDW 13.6 % (11.5-14.5) 01/07/18 06:30 Plt Count 138 10^3/uL (120.0-450.0) 01/07/18 06:30 MPV 10.1 fl (7.0-11.0) 01/07/18 06:30 Gran % 47.6 % (50.0-68.0) L 01/07/18 06:30 Lymph % (Auto) 38.2 % (22.0-35.0) H 01/07/18 06:30 Custer % (Auto) 8.7 % (1.0-6.0) H 01/07/18 06:30 Eos % (Auto) 5.1 % (1.5-5.0) H 01/07/18 06:30 Baso % (Auto) 0.4 % (0.0-3.0) 01/07/18 06:30 Gran # 2.24 (1.4-6.5) 01/07/18 06:30 Lymph # (Auto) 1.8 (1.2-3.4) 01/07/18 06:30 Custer # (Auto) 0.4 (0.1-0.6) 01/07/18 06:30 Eos # (Auto) 0.2 (0.0-0.7) 01/07/18 06:30 Baso # (Auto) 0.02 K/mm3 (0.0-2.0) 01/07/18 06:30 PT 11.5 SECONDS (9.4-12.5) 01/05/18 03:25 INR 1.01 01/05/18 03:25 APTT 30.1 Seconds (25.1-36.5) 01/05/18 03:25 Sodium 140 mmol/L (132-148) 01/07/18 06:30 Potassium 3.9 mmol/L (3.6-5.0) 01/07/18 06:30 Chloride 102 mmol/L (98-107) 01/07/18 06:30 Carbon Dioxide 27 mmol/L (21-33) 01/07/18 06:30 Anion Gap 15 (10-20) 01/07/18 06:30 BUN 14 mg/dL (7-21) 01/07/18 06:30 Creatinine 1.1 mg/dl (0.8-1.5) 01/07/18 06:30 Est GFR ( Amer) > 60 01/07/18 06:30 Est GFR (Non-Af Amer) > 60 01/07/18 06:30 POC Glucose (mg/dL) 208 mg/dL (65-110) H 01/07/18 11:13 Random Glucose 162 mg/dL (70-110) H 01/07/18 06:30 Hemoglobin A1c 8.1 % (4.2-6.5) H 01/05/18 03:25 Calcium 9.3 mg/dL (8.4-10.5) 01/07/18 06:30 Magnesium 1.8 mg/dL (1.7-2.2) 01/05/18 03:25 Total Bilirubin 1.0 mg/dL (0.2-1.3) 01/07/18 06:30 AST 17 U/L (17-59) 01/07/18 06:30 ALT 25 U/L (7-56) 01/07/18 06:30 Alkaline Phosphatase 65 U/L (38-126) 01/07/18 06:30 Troponin I < 0.01 ng/mL 01/05/18 14:05 Total Protein 6.6 g/dL (5.8-8.3) 01/07/18 06:30 Albumin 3.9 g/dL (3.0-4.8) 01/07/18 06:30 Globulin 2.8 gm/dL 01/07/18 06:30 Albumin/Globulin Ratio 1.4 (1.1-1.8) 01/07/18 06:30 Triglycerides 104 mg/dL (35-160) 01/05/18 03:25 Cholesterol 144 mg/dL (130-200) 01/05/18 03:25 LDL Cholesterol Direct 73 mg/dL (0-129) 01/05/18 03:25 HDL Cholesterol 34 mg/dL (29-60) 01/05/18 03:25 TSH 3rd Generation 2.70 mIU/mL (0.46-4.68) 01/05/18 03:25 Urine Opiates Screen Negative (NEGATIVE) 01/05/18 14:03 Urine Methadone Screen Negative (NEGATIVE) 01/05/18 14:03 Ur Barbiturates Screen Negative (NEGATIVE) 01/05/18 14:03 Ur Phencyclidine Scrn Negative (NEGATIVE) 01/05/18 14:03 Ur Amphetamines Screen Negative (NEGATIVE) 01/05/18 14:03 U Benzodiazepines Scrn Negative (NEGATIVE) 01/05/18 14:03 U Oth Cocaine Metabols Negative (NEGATIVE) 01/05/18 14:03 U Cannabinoids Screen Negative (NEGATIVE) 01/05/18 14:03 Alcohol, Quantitative < 10 mg/dL (0-10) 01/05/18 03:25 Blood Type AB POSITIVE 01/05/18 03:25 Blood Type Confirm AB POSITIVE 01/05/18 04:18 Antibody Screen Negative 01/05/18 03:25 BBK History Checked No verified bt 01/05/18 03:25 - Hospital Course Hospital Course: Upon admission Mr. 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 He was brought in by ambulance for evaluation of erratic driving after police pulled the patient over and discovered that he had slurred speech and ataxia. He admitted to dizziness and denied fever, chills, weakness, headaches, vision changes, chest pain, palpitations, shortness of breath, cough, abdominal pain, pain with urination or bowel movements, bleeding, nausea, vomiting, diarrhea, constipation , and recent travel. He denied tobacco use, ETOH, and substance abuse. Patient reported taking a blood pressure medication, tamsulosin, and metformin at home. Hospital course CODE STROKE was called and the patient was given aspirin 325mg and was not a candidate for tPA. A CT of the head revealed no acute pathology or injury. Insulin sliding scale was started for diabetes management, tamsulosin was started for BPH, protonix were started for GI prophylaxis, lisinopril was started for hypertension. Aspirin and lipitor were started. Dr. Winkler was consulted for neurology. Speech pathology was consulted but patient refused services. The patient was evaluated by PT and was determined not to be a candidate for services. MRI of the brain was done and revealed no significant acute abnormalities. CTA of the head and neck was unremarkable, and EEG was normal. EKG showed NSR and HR of 74 bpm. Troponins were negative x 3. An echo revealed moderate LVH with an EF of 45% and cardio was consulted. Upon discharge Patient was recommeded to follow-up with a neurologist, PMD, and protective services case worker as an outpatient. [place] [facility] [place] 4:[place] for follow- up. Patient was instructed to continue aspirin 81 mg PO daily, lipitor 20mg PO daily, zestril 40mg PO daily, tamsulosin 0.4mg PO daily, and to resume metformin. Instructions discussed in detail with patient who understood and agreed. Please note this is a summary of patient's hospital stay. For full hospital course please see medical records. Additional Instructions Upon discharge please take the following medications: -Aspirin 81mg PO daily -lipitor 20mg PO daily -zestril 40mg PO daily -tamsulosin 0.4mg daily -resume metformin per schedule and dosage prior to hospital admission Please return to [facility] on 01/17 at 4:30pm to follow-up and to be established with a Primary Care Doctor. Please establish outpatient care with a neurologist and protective services case worker. If symptoms worsen or return please return to the emergency department. Discharge Exam - Head Exam Head Exam: ATRAUMATIC, NORMAL INSPECTION, NORMOCEPHALIC - Eye Exam Eye Exam: EOMI, Normal appearance - Respiratory Exam Respiratory Exam: Clear to PA & Lateral, NORMAL BREATHING PATTERN. absent: Rhonchi, Wheezes - Cardiovascular Exam Cardiovascular Exam: REGULAR RHYTHM, +S1, +S2 - GI/Abdominal Exam GI & Abdominal Exam: Normal Bowel Sounds, Soft. absent: Tenderness - Extremities Exam Extremities exam: full ROM, normal inspection - Neurological Exam Neurological exam: Alert, Oriented x3 - Psychiatric Exam Psychiatric exam: Normal Affect, Normal Mood - Skin Skin Exam: Normal Color Discharge Plan - Discharge Medications Prescriptions: Aspirin [Ecotrin] 81 mg PO DAILY #14 tabec Atorvastatin [Lipitor] 20 mg PO DIN #14 tab Lisinopril [Zestril] 40 mg PO DAILY #14 tab MetFORMIN [glucoPHAGE] 1 tab PO DAILY #14 tab Tamsulosin [Flomax] 0.4 mg PO DAILY #14 cap - Follow Up Plan Condition: FAIR Disposition: HOME/ ROUTINE Instructions: Stroke, Heart Healthy Diet, Constipation, Adult (DC), Transient Ischemic Attack (DC) Additional Instructions: Please follow up with primary care at [facility] [place] on at 4:30pm. Please follow up with neurology, Dr. Winkler, within 1 to 2 weeks. Please call to make an appointment. Please take the following medications as prescribed: Aspirin daily Atorvastatin daily Lisinopril daily Tamsulosin daily Metformin daily If symptoms return, please return to the emergency department. Referrals: [facility] [place] Dio Winkler MD [Staff Provider] - <Esther Navarro - Last Filed: 01/10/18 08:35> Provider - Provider Date of Admission: 01/05/18 04:10 Attending physician: Esther Navarro DO Hospital Course - Lab Results Lab Results: Most Recent Lab Values WBC 4.7 10^3/ul (4.5-11.0) 01/07/18 06:30 RBC 4.84 10^6/uL (3.5-6.1) 01/07/18 06:30 Hgb 14.8 g/dL (14.0-18.0) 01/07/18 06:30 Hct 41.7 % (42.0-52.0) L 01/07/18 06:30 MCV 86.2 fl (80.0-105.0) 01/07/18 06:30 MCH 30.6 pg (25.0-35.0) 01/07/18 06:30 MCHC 35.5 g/dl (31.0-37.0) 01/07/18 06:30 RDW 13.6 % (11.5-14.5) 01/07/18 06:30 Plt Count 138 10^3/uL (120.0-450.0) 01/07/18 06:30 MPV 10.1 fl (7.0-11.0) 01/07/18 06:30 Gran % 47.6 % (50.0-68.0) L 01/07/18 06:30 Lymph % (Auto) 38.2 % (22.0-35.0) H 01/07/18 06:30 Custer % (Auto) 8.7 % (1.0-6.0) H 01/07/18 06:30 Eos % (Auto) 5.1 % (1.5-5.0) H 01/07/18 06:30 Baso % (Auto) 0.4 % (0.0-3.0) 01/07/18 06:30 Gran # 2.24 (1.4-6.5) 01/07/18 06:30 Lymph # (Auto) 1.8 (1.2-3.4) 01/07/18 06:30 Custer # (Auto) 0.4 (0.1-0.6) 01/07/18 06:30 Eos # (Auto) 0.2 (0.0-0.7) 01/07/18 06:30 Baso # (Auto) 0.02 K/mm3 (0.0-2.0) 01/07/18 06:30 PT 11.5 SECONDS (9.4-12.5) 01/05/18 03:25 INR 1.01 01/05/18 03:25 APTT 30.1 Seconds (25.1-36.5) 01/05/18 03:25 Sodium 140 mmol/L (132-148) 01/07/18 06:30 Potassium 3.9 mmol/L (3.6-5.0) 01/07/18 06:30 Chloride 102 mmol/L (98-107) 01/07/18 06:30 Carbon Dioxide 27 mmol/L (21-33) 01/07/18 06:30 Anion Gap 15 (10-20) 01/07/18 06:30 BUN 14 mg/dL (7-21) 01/07/18 06:30 Creatinine 1.1 mg/dl (0.8-1.5) 01/07/18 06:30 Est GFR ( Amer) > 60 01/07/18 06:30 Est GFR (Non-Af Amer) > 60 01/07/18 06:30 POC Glucose (mg/dL) 136 mg/dL (65-110) H 01/07/18 16:15 Random Glucose 162 mg/dL (70-110) H 01/07/18 06:30 Hemoglobin A1c 8.1 % (4.2-6.5) H 01/05/18 03:25 Calcium 9.3 mg/dL (8.4-10.5) 01/07/18 06:30 Magnesium 1.8 mg/dL (1.7-2.2) 01/05/18 03:25 Total Bilirubin 1.0 mg/dL (0.2-1.3) 01/07/18 06:30 AST 17 U/L (17-59) 01/07/18 06:30 ALT 25 U/L (7-56) 01/07/18 06:30 Alkaline Phosphatase 65 U/L (38-126) 01/07/18 06:30 Troponin I < 0.01 ng/mL 01/05/18 14:05 Total Protein 6.6 g/dL (5.8-8.3) 01/07/18 06:30 Albumin 3.9 g/dL (3.0-4.8) 01/07/18 06:30 Globulin 2.8 gm/dL 01/07/18 06:30 Albumin/Globulin Ratio 1.4 (1.1-1.8) 01/07/18 06:30 Triglycerides 104 mg/dL (35-160) 01/05/18 03:25 Cholesterol 144 mg/dL (130-200) 01/05/18 03:25 LDL Cholesterol Direct 73 mg/dL (0-129) 01/05/18 03:25 HDL Cholesterol 34 mg/dL (29-60) 01/05/18 03:25 TSH 3rd Generation 2.70 mIU/mL (0.46-4.68) 01/05/18 03:25 Urine Opiates Screen Negative (NEGATIVE) 01/05/18 14:03 Urine Methadone Screen Negative (NEGATIVE) 01/05/18 14:03 Ur Barbiturates Screen Negative (NEGATIVE) 01/05/18 14:03 Ur Phencyclidine Scrn Negative (NEGATIVE) 01/05/18 14:03 Ur Amphetamines Screen Negative (NEGATIVE) 01/05/18 14:03 U Benzodiazepines Scrn Negative (NEGATIVE) 01/05/18 14:03 U Oth Cocaine Metabols Negative (NEGATIVE) 01/05/18 14:03 U Cannabinoids Screen Negative (NEGATIVE) 01/05/18 14:03 Alcohol, Quantitative < 10 mg/dL (0-10) 01/05/18 03:25 Blood Type AB POSITIVE 01/05/18 03:25 Blood Type Confirm AB POSITIVE 01/05/18 04:18 Antibody Screen Negative 01/05/18 03:25 BBK History Checked No verified bt 01/05/18 03:25 Attending/Attestation - Attestation I have personally seen and examined this patient.: Yes I have fully participated in the care of the patient.: Yes I have reviewed all pertinent clinical information, including history, physical exam and plan: Yes Notes (Text): Patient seen and examined by me with resident at 10:15AM on 01/05/18. Case including discharge plan discussed with resident. Agree with above with following additions/corrections. Patient is a 62 year old male with past medical history significant for CVA, left sided weakness, DM2, Hypertension, and BPH that presented to the emergency room with ataxia and slurred speech after he wall pulled over by police for erratic driving. Please see H&P for full details. Patient was admitted with TIA, type 2 diabetes, hypertension,and BPH. Code stroke was called in the emergency room. Neurology was consulted. Patient received aspirin on admission. Per patient, he does not take his home medications daily. He does not take aspirin daily. Patient had elevated blood pressure on admission. Per neurology, symptoms likely secondary to TIA vs hypertensive urgency. CT head per radiologist showed no acute findings. Head/ neck CTA per radiologist showed no evidence of endoluminal thrombus, occulsion or definite significant stenosis in the intracranial arteries; no evidence of hemodynamically significant stenosis in the internal carotid arteries; patent bilateral vertebral arteries. Brain MRI per radiologist showed no acute intracranial abnormality; old infarction in the right centrum semiovale, dominguez radiata and frontal subcortical white matter; mild chronic microangiopathic changes and mild age-related global parenchymal volume loss. 2d echo per radiologist shows left ventricle normal size, EF of 45%, mild to moderate concentric left ventricular hypertrophy. Patient was continued on ASA and lipitor. Patient's symptoms resolved. Cardiology Dr. Conteh was consulted for decreased EF on echo. Case discussed with Dr. Conteh who stated he read the echo and patient has a normal EF. Troponins were within normal limits. Uncontrolled hypertension likely secondary to patient's noncompliance with medications at home. Patient was advised to take his medications daily. Importance of compliance was discussed at length as patient has had previous stroke and is at risk for future strokes if medications are not taken on daily basis. Patient was maintained on insulin sliding scale for diabetes. Patient was ambulating well with physical therapy. Symptoms resolved upon discharge. Patient was cleared for discharge by all consultants. Patient was discharged home. On day of discharge, patient stated she was feeling much better. Voice improved. Patient tolerating diet. No chest pain. No abdominal pain. No nausea or vomiting. No shortness of breath. No fevers or chills. No headaches or dizziness. Physical exam: Gen: Awake and alert sitting up in bed in no acute distress HEENT: Normocephalic, atraumatic. Extraocular muscles intact, pupils equal reactive. No scleral icterus. Oropharynx is pink and moist. Neck is supple. Cardiovascular: Normal rhythm. Normal S1, S2. No murmurs, rubs, or gallops appreciated Pulmonary: Normal respiratory effort. No rhonchi, rales or wheezing appreciated. Gastrointestinal: Soft, nontender , nondistended, positive bowel sounds all 4 quadrants, no guarding. Musculoskeletal: Normal range of motion all extremities. No calf tenderness. No edema appreciated. Central nervous system: AAO x 3. CN 2-12 grossly intact. 5/5 muscle strength all extremities. NIHSS 0 Dermatologic: Skin warm and dry Please see chart for full details. Follow up instructions. Patient to follow up with primary care at [facility] [place] on 01/17/18 at 4:30pm. Patient to follow up with neurology, Dr. Winkler, within 1 to 2 weeks. Please call to make an appointment. All instructions explained to patient in detail. Patient both understand and agree to all instructions. Time spent in discharging the patient including chart review, medication reconciliation, discussion with the patient , medical laboratory scientist, consultants, and nursing staff was approximately 40 minutes.
== END 2018-01-07 18:49 | disposition home or self-care (01) ==
LOC: ED 02:55 → ERH 04:10 → 2RNO 05:16
PROVIDERS: ADMIT Hospitalist; ATTEND Hospitalist
DX: I16.0 Hypertensive urgency (principal); E11.9 Type 2 diabetes mellitus without complications; I11.9 Hypertensive heart disease without heart failure; I51.7 Cardiomegaly; N40.0 Benign prostatic hyperplasia without lower urinary tract symptoms; Z91.14 Patient's other noncompliance with medication regimen; Z79.84 Long term (current) use of oral hypoglycemic drugs; Z79.82 Long term (current) use of aspirin; Z86.73 Personal history of transient ischemic attack (TIA), and cerebral infarction without residual deficits
CPT/HCPCS: 36415; 70450; 70496; 70498; 70551; 71045; 80053; 80061; 82948; 83036; 83735; 84443; 84484; 85025; 85610; 85730; 86850; 86900; 93005; 93306; 97116; 97161; 97165; 97530; 99285; G0378; G0480; G8978; G8979; G8980; G8987; G8988; G8989; J7030; Q9967